=== PATIENT | female | born 1940 | race Caucasian/White ===

== ENCOUNTER 2016-10-13 08:39 | Observation (INO) | payer MEDICARE, OTHER ==
[2016-10-11 17:21] LABS: BASOPHILS 0.3 %; BASOPHILS ABSOLUTE 0.02 10/3/uL (0.0-0.16); EOSINOPHILS 5.2 %; HEMOGLOBIN 9.3 g/dL (12.0-16.0); IMMATURE GRANULOCYTES 0.3 %; IMMATURE GRANULOCYTES ABSOLUTE 0.02 10/3/uL (0.0-0.11); LYMPHOCYTES 22.8 %; LYMPHOCYTES ABSOLUTE 1.32 10/3/uL (0.67-4.30); MEAN CORPUSCULAR HEMOGLOB 28.8 pg (26.0-34.0); MEAN PLATELET VOLUME 10.2 fL (9.2-13.0); MONOCYTES ABSOLUTE 0.58 10/3/uL (0.21-1.20); NEUTROPHILS 61.4 %; NEUTROPHILS ABSOLUTE 3.54 10/3/uL (2.02-8.40); PLATELET COUNT 207 10/3/uL (150-400); RBC DISTRIBUTION WIDTH 14.5 % (12.0-16.0); RED CELL COUNT 3.23 10/6/uL (4.0-5.6); WHITE BLOOD CELLS 5.8 10/3/uL (4.5-10.5)
[2016-10-11 17:22] LABS: HEMATOCRIT 31.6 % (36.0-48.0); MANUAL DIFF NO %; MEAN CORPUS HGB CONC 29.4 g/dL (32.0-36.0); MEAN CORPUSCULAR VOLUME 97.8 fL (80-100)
[2016-10-11 17:59] LABS: CHLORIDE, SERUM 103 MMOL/L (96-112); CREATININE 1.62 MG/DL (0.55-1.02); GFR AFRICAN AMERICAN 35 ML/MIN (>=60); GFR NON AFRICAN AMERICAN 30 ML/MIN (>=60); POTASSIUM, SERUM 4.2 MMOL/L (3.5-5.3); SODIUM, SERUM 142 MMOL/L (135-148)
[2016-10-11 18:00] LABS: BUN (BLOOD UREA NITROGEN) 37 MG/DL (6-23); CALCIUM, SERUM 10.5 MG/DL (8.5-10.4); CO2 (CARBON DIOXIDE) 39 MMOL/L (24-34); GLUCOSE, SERUM 81 MG/DL (60-99)
--- NOTE | ~2016-10-13 | DS ---
Discharge Summary [facility] [address] [place]. [address] NAME: ZEB ZENDEJAS : 36 STATUS : ADM Brit PAT#: [id number] AGE: 76 ADM/REG DATE : 10/13/16 MR#: [id number] REPORT SERV DATE: 10/14/16 DICTATED BY: JODY CHEATHAM DATE: 10/14/16 REPORT STATUS : Draft TRANSCRIBED BY: SAGARL DATE: 10/14/16 ADMISSION DATE: 10/13/2016 DISCHARGE DATE: 10/14/2016 CHIEF COMPLAINT: Recurrent UTIs with urinary retention. BRIEF HISTORY OF PRESENT ILLNESS: Ms. Zendejas is a 76-year-old, who is confined to bed and has chronic retention with recurring UTIs. UTIs associated with fecal soilage of the vagina with stool and a chronic indwelling catheter. She is unable to self cath. She is unable to void into a bedpan. She is admitted for SP tube placement. HOSPITAL COURSE: She was taken the operating for SP tube placement. There was bleeding from the SP tube tract, causing hematuria, as such she was admitted for CBI. CBI was maintained for approximately 18 hours postop. Urine was pink/clear with CBI off on hospital day #2. As such, her urethral catheter was removed and the SP tube was placed to a bedside bag. She will follow up in one month for SP tube change. No medication changes at discharge. She will resume her Plavix in five days or so. DICTATED BY: [facility]/MELIA Jody Cheatham M.D. / [id number] CC: [facility] SHANNON BRITTANY
--- NOTE | ~2016-10-13 | OP ---
Record Of Operation [facility] [address] [place]. [address] NAME: ZEB CAMACHO : 36 STATUS : ADM Brit PAT#: [id number] AGE: 76 ADM/REG DATE : 10/13/16 MR#: [id number] REPORT SERV DATE: 10/13/16 DICTATED BY: JODY CHEATHAM DATE: 10/13/16 REPORT STATUS : Draft TRANSCRIBED BY: MODL DATE: 10/13/16 DATE OF PROCEDURE: PREOPERATIVE DIAGNOSES: 1. Neurogenic bladder with chronic retention. 2. Recurrent urinary tract infection secondary to fecal soilage of vagina. POSTOPERATIVE DIAGNOSES: 1. Neurogenic bladder with chronic retention. 2. Recurrent urinary tract infection secondary to fecal soilage of vagina. PROCEDURE PERFORMED: 1. Cystoscopy with suprapubic tube placement. 2. Bilateral retrograde pyelograms. FINDINGS: Small contracted bladder with bilateral reflux. ANESTHESIA: Monitored anesthesia care. COMPLICATIONS: None. DRAINS: 16-Nepalese SP tube, 18-Nepalese urethral catheter. COMPLICATIONS: I was unable to safely pass a Blayne suprapubic introducer sheath. As such, a wire was placed percutaneously into the dome of the bladder and the track sequentially dilated so as to allow passage of SP tube. TECHNIQUE: Informed consent was obtained, Merrem was given preoperatively per the preop urine culture. She was brought to the operating room, indwelling Felton catheter was removed. Monitored anesthesia care was administered. Introitus was prepped and draped as well as the lower abdomen in a sterile fashion in the lithotomy position. Rigid cystoscopy showed a short urethra, slight cystocele, and a small contracted bladder with innumerable diverticula. Both UOs were visualized within diverticula, they were patulous. Retrograde pyelograms were performed on the right and the left. Retrograde pyelograms on the right and left showed moderate to severe hydroureteronephrosis to the level of the bladder. Cystogram showed reflux. My impression of that is neurogenic bladder with reflux bilaterally. A spinal needle was passed. The bladder was distended by placing the Felton and obstructing the bladder neck. The bladder was distended to 200 mL and some contrast was instilled. I attempted to pass a fine needle into the dome of the bladder cystoscopically. This was significantly more difficult than usual. Ultimately, needle was passed into the dome. I thought it is safest to dilate over this tract rather than passage of the Blayne suprapubic trocar. I removed the inner cannula of the spinal needle, the wire was visualized going into the bladder. I incised the skin down to the level of the fascia at the SP tube Record Of Operation [facility] [address]. [address] NAME: ZEB CAMACHO : 38 STATUS : ADM Brit PAT#: [id number] AGE: 76 ADM/REG DATE : 10/13/16 MR#: [id number] REPORT SERV DATE: 10/13/16 DICTATED BY: JODY CHEATHAM DATE: 10/13/16 REPORT STATUS : Draft TRANSCRIBED BY: MELIA DATE: 10/13/16 placement site. I used an Amplatz introducer set to sequentially dilate from 8-Nepalese up to 22-Nepalese. Following this, I was able to pass the 16-Nepalese Councill tip catheter over the wire into the bladder. The balloon was inflated. A cystogram was performed, which showed no extravasation and the tube safely positioned in the bladder. There was some hematuria with clots in the bladder. I placed a urethral catheter that was an 18-Nepalese, started CBI through the SP tube, draining out the urethral catheter. She will be admitted for observation. [facility]/MELIA Jody Cheatham M.D. / [id number] CC: [facility] SHANNON BRITTANY
--- NOTE | ~2016-10-13 | HP ---
History And Physical [place] [address] [facility] [place]. [address] NAME: ZEB ZENDEJAS : 36 STATUS : ADM Brit PAT#: [id number] AGE: 76 ADM/REG DATE : 10/13/16 MR#: [id number] REPORT SERV DATE: 10/14/16 DICTATED BY: JODY CHEATHAM DATE: 10/14/16 REPORT STATUS : Draft TRANSCRIBED BY: MODL DATE: 10/14/16 DATE OF ADMISSION: 10/13/2016 CHIEF COMPLAINT: Chronic retention with recurrent UTIs. HISTORY OF PRESENT ILLNESS: Ms. Zendejas is a 76-year-old, who is confined to bed and has chronic urinary retention. She had an indwelling Felton catheter as she is unable to self- cath. There are problems with fecal soilage of the vagina resulting in recurrent/persistent urinary tract infections. She was admitted for SP tube placement. There was more than expected bleeding from the SP tube, and as such, she was admitted for CBI after the procedure. PAST MEDICAL HISTORY: Stroke; coronary artery disease; peripheral vascular disease, status post amputation; diabetes; chronic kidney disease; COPD; lung cancer; home oxygen. MEDICATIONS: Carvedilol, Aricept, Depakote, Pepcid, Neurontin, Lasix, montelukast, Spiriva, Xopenex, Xanax, Plavix that was held, Colace, Tylenol. FAMILY HISTORY: Noncontributory. REVIEW OF SYSTEMS: No fevers, chills, nausea, vomiting. She has catheter-associated UTIs and some renal insufficiency associated with antibiotics for UTI. ALLERGIES: MELOXICAM, MORPHINE, LISINOPRIL, TAPES. PHYSICAL EXAMINATION: VITAL SIGNS: Weight 166 pounds, blood pressure 124/57, pulse 73, respirations 16, 97.2. GENERAL: Pleasant, chronically-ill 76-year-old, appearing older than stated age, in no acute distress. HEENT: Sclerae anicteric. LUNGS: Clear. HEART: Regular rhythm. CHEST: Clear anteriorly. ABDOMEN: Soft, protuberant. Well-healed lower midline incision. There was a new SP tube in place. This was placed earlier today by me. Introitus shows moderate vaginal stenosis. There is no rebound. EXTREMITIES: Right lower extremity above-knee amputation. NEURO: She is oriented to person, place, and situation. LABORATORY DATA: Creatinine 1.62. IMPRESSION: Chronic urinary retention with recurrent urinary tract infections related to indwelling catheter. PLAN: History And Physical [address] [address] NAME: ZEB ZENDEJAS : 36 STATUS : ADM Brit PAT#: [id number] AGE: 76 ADM/REG DATE : 10/13/16 MR#: [id number] REPORT SERV DATE: 10/14/16 DICTATED BY: JODY CHEATHAM DATE: 10/14/16 REPORT STATUS : Draft TRANSCRIBED BY: MELIA DATE: 10/14/16 1. SP tube placement earlier today. 2. There was hematuria after the SP tube placement, and as such, she is admitted for CBI and this will run into the SP tube and out an 18-Thai urethral catheter. Plan to observe her for 23 hours and discharge home. [facility]/MELIA Jody Cheatham M.D. / [id number] CC: [facility] SHANNON BRITTANY
[~2016-10-13 08:39] MED LIST: ACET500CAP PO; ACETSUP650 PR; ADVAIR115P INH; ADVAIR250 INH; ALAVERT10 MG PO; AMLODIPINE BESYL PO; ARICEPT10 PO; ASA5GR PO; ASAB PO; ASCORBIC ACID PO; ASPERCREME101 EX; ATROVENTUD INH; B121000P IM; BACDS PO; BIST PO; BREO ELLIPTA; BREO ELLIPTA 21 EACH INH; BREO ELLIPTA INH; CALMOSEPTINE O2.5 OZ TOP; CARTIA XT240 MG/24 PO; CASTOR TOP; CEFT2 PO; CENTRUM PO; CHLORPHEN4 MG PO; CIP5 PO; CLARIT10 PO; COREG3 PO; COREG6 PO; CRANBERRY; CRANBERRY PO; CRANBERRY1 TAB PO; CRANBERY450 MG PO; D.O.S.100 MG PO; DELTADOSE; DEPAK250ER PO; DEPAKOT250 PO; DEPAKOTE 125 M125 MG PO; DIOVAN HCT160 MG/25 PO; DOCUSOFT S100 MG PO; DRAMAMINE25 MG PO; DSS PO; DULERA 200 MCG/13 GM INH; DUONEB INH; ELDERTONIC PO; EXCEDRIN MIGRA1 EAC1 PO; FERROUS SULF325 M1 PO; FLONASE NAS; FUSION PLUS PO; GGDM5ML PO; HIPREX1 GM PO; HUMALOG SC; HUMI PO; IPRATROPIUM/ALBUTERO; IRON325 MG PO; L20 PEG; L20 PO; LACT30UDL PO; LEVAQUIN750 MG PO; LIQUID TEARS OPH; LOP25 PO; LOP50 PO; LORT7 PO; LOVENOX40 SC; MACRO50B PO; MAGOX4 PO; METOPROLOL TARTRATE PO; MIRALAXPKT PO; MUCINEX600 MG PO; MVI PO; MYRBETRIQ50 MG PO; NAMENDA10 MG PO; NEUR100 PO; NEUR300 PO; NEUR600 PO; NEXIUM40 PO; NORCO1 TA1 PO; NORCO1 TA2 PO; NORV25 PO; NORV5 PO; NOVOLOG SC; NOVOPEN SC; NYS500UDL PO; P20 PO; PAX10 PO; PEP20 PO; PEPCID40 MG PO; PERCOCET1 TA4 PO; PLAVIX; PLAVIX PO; PRAVAC PO; PREV30 PO; PRIN20 PO; PRIN5 PO; PROAIR HFA INH; PROAIRRESP INH; PROTONIX PO; PULRESP.5 INH; REFRESH OPH; ROCEPH IV; SENTAB PO; SEPTRA1 TAB PO; SILVADENE1 % TOP; SINGULAIR1 PO; SMZ/TMP PO; SPIRIVA INH; STOOL SOFTEN240 MG PO; SYMBICORT 160/41 INH INH; Spiriva Handihaler; T PO; TARCEVA PO; TARCEVA25 MG PO; ULTRAM50 PO; UREX1 GM PO; VENELEX OINTMENT; VITAMIN B-121000 MC1 IM; VITAMIN B-121000 MC1 SL; VITAMIN B12 PO; VITAMIN D31000 UNIT PO; VITC500 PO; VOLTAREN1 % TOP; X25; X25 PO; XOPENEX; XOPENEX INH; XOPENEX1.25 MG/3 INH; XYZAL5 MG PO; ZESTRIL5 MG PO; ZOCOR10 PO; ZOFRAN4; ZOFRAN4 PO; ZOFRAN8 PO; ZYRTEC ALLGY10 MG PO; ZYVOXPO PO; [UNRECOGNIZED DRUG - REMARK] PO
== END 2016-10-14 13:39 | disposition home or self-care (01) ==
LOC: SDC 08:39 → SDC/OF 12:49 → 4SO 14:58
PROVIDERS: Urology
PROC: BT14YZZ Fluoroscopy of Kidneys, Ureters and Bladder using Other Contrast (ICD-10-PCS; principal; 2016-10-13 11:00)
DX: N31.1 Reflex neuropathic bladder, not elsewhere classified (principal); N39.0 Urinary tract infection, site not specified; R33.9 Retention of urine, unspecified; N32.89 Other specified disorders of bladder; R15.1 Fecal smearing; I25.10 Atherosclerotic heart disease of native coronary artery without angina pectoris; E11.51 Type 2 diabetes mellitus with diabetic peripheral angiopathy without gangrene; J44.9 Chronic obstructive pulmonary disease, unspecified; E11.22 Type 2 diabetes mellitus with diabetic chronic kidney disease; N18.9 Chronic kidney disease, unspecified; Z85.118 Personal history of other malignant neoplasm of bronchus and lung; Z86.73 Personal history of transient ischemic attack (TIA), and cerebral infarction without residual deficits; Z98.890 Other specified postprocedural states; Z79.899 Other long term (current) drug therapy; Z88.5 Allergy status to narcotic agent; Z88.8 Allergy status to other drugs, medicaments and biological substances
CPT/HCPCS: 74420; 80048; 85025; 93005; 94640; 96374; 96376; A9270-GY; C1726; C1758; C1769; G0378; J0360; J2185; J3010; Q9967